=== PATIENT | female | born 1980 | race Hispanic/Latino ===

== ENCOUNTER → 2023-09-03 18:36 | Outpatient (REF) | payer OTHER, SELFPAY | LOC: WDC 18:36 | PROVIDERS: ATTENDING PHYSICIAN Nurse Practitioner Family; FAMILY PHYSICIAN Physician Assistant | DX: Z12.31 Encounter for screening mammogram for malignant neoplasm of breast (principal) | CPT/HCPCS: 77063; 77067 ==

== ENCOUNTER → 2024-08-16 12:57 | Outpatient (REF) | payer OTHER, SELFPAY | LOC: RAD 12:57 | PROVIDERS: ATTENDING PHYSICIAN Physician Assistant | DX: R52 Pain, unspecified (principal) | CPT/HCPCS: 73502 ==

== ENCOUNTER → 2024-09-27 13:24 | Outpatient (REF) | payer OTHER, SELFPAY | LOC: WDC 13:24 | PROVIDERS: ATTENDING PHYSICIAN Physician Assistant | DX: Z12.31 Encounter for screening mammogram for malignant neoplasm of breast (principal) | CPT/HCPCS: 77063; 77067 ==

== ENCOUNTER → 2024-10-13 09:52 | Outpatient (REF) | payer OTHER, SELFPAY | LOC: WDC 09:52 | PROVIDERS: ATTENDING PHYSICIAN Physician Assistant | DX: R92.8 Other abnormal and inconclusive findings on diagnostic imaging of breast (principal) | CPT/HCPCS: 76642 ==